=== PATIENT | male | born 1965 | race African-American/Black ===

== ENCOUNTER 2021-06-12 16:54 | Inpatient (IN) | payer MEDICAID ==
[~2021-06-12] VITALS: Ht 175.3 cm; Wt 71.7 kg
[2021-06-12] MEDS ORDERED: SODIUM CHLORIDE 0.9% 1,000 ML IV ONE (23:30)
[2021-06-12] MEDS ORDERED: KETOROLAC 30MG/ML VIAL IV STA (23:30)
[2021-06-12] MEDS ORDERED: ONDANSETRON HCL 4MG/2ML INJ IV STA (23:30)
[2021-06-12] MEDS ORDERED: FAMOTIDINE 20MG/2ML VIAL IV ONE (23:30)
[2021-06-12] MEDS ORDERED: MAGNESIUM/ALUMINUM HYDROXIDE/SIMETHICONE 30ML UDC PO STA (23:30)
[2021-06-13 00:13] LABS: CLARITY URINE CLOUDY (CLEAR); COLOR URINE DARK YELLOW (YELLOW); KETONES URINE 3+ (NEGATIVE); LEUKOCYTE ESTERASE URINE 2+ (NEGATIVE); NITRITE URINE NEGATIVE (NEGATIVE); OCCULT BLOOD URINE NEGATIVE (NEGATIVE); PH URINE 5.5 (4.5-8.0); PROTEIN URINE 1+ (NEGATIVE); SPECIFIC GRAVITY URINE 1.027 (1.005-1.030)
[2021-06-13 00:27] LABS: BASOPHILS % 0.6 % (0.0-2.0); EOSINOPHILS % 0.2 % (0.0-5.0); HEMATOCRIT. 54.5 % (42.0-52.0); HEMOGLOBIN. 18.4 g/dL (14.0-18.0); LYMPHOCYTES % 22.3 % (20.0-50.0); MEAN CORPUSCULAR HEMOGLOBIN 33.3 pg (28.0-32.0); MEAN CORPUSCULAR VOLUME 98.8 fL (80.0-94.0); MEAN PLATELET VOLUME 7.9 fl (7.4-10.4); MONOCYTES % 6.6 % (2.0-8.0); NEUTROPHILS % 70.3 % (40.0-76.0); PLATELET 285 x1000/uL (130-400); RED BLOOD CELL COUNT 5.52 mill/uL (4.7-6.1); RED CELL DISTRIBUTION WIDTH 13.4 % (11.6-14.6)
[2021-06-13 00:34] LABS: CHLORIDE 100 mEq/L (98-107)
[2021-06-13] MEDS ORDERED: ACETAMINOPHEN 650MG SUPP PR PRN (05:15)
[2021-06-13] MEDS ORDERED: ONDANSETRON HCL 4MG/2ML INJ IV PRN (05:15)
[2021-06-13] MEDS ORDERED: NALOXONE HCL 0.4 MG/ML 1ML VIAL IV PRN (05:30)
[2021-06-13] MEDS: LEVOFLOXACIN 500MG PREMIX 100 ML IV SCH (05:35)
[2021-06-13] MEDS: DEXT 5%/0.45% NACL 1000ML 1,000 ML IV SCH ×2 (05:36→17:40)
[2021-06-13] MEDS: HYDROMORPHONE HCL/PF 2MG/ML CPJ IV PRN ×2 (13:57→21:48)
[2021-06-13 16:00] VITALS: BP 135/89
[2021-06-13 16:34] VITALS: BP 135/89
[2021-06-13 20:00] VITALS: BP 114/75
[2021-06-14] VITALS: BP 119/77
[2021-06-14 04:00] VITALS: BP 128/89
[2021-06-14] MEDS: LEVOFLOXACIN 500MG PREMIX 100 ML IV SCH (05:07)
[2021-06-14 05:44] LABS: BASOPHILS % 0.7 % (0.0-2.0); EOSINOPHILS % 1.1 % (0.0-5.0); HEMATOCRIT. 45.7 % (42.0-52.0); HEMOGLOBIN. 15.5 g/dL (14.0-18.0); LYMPHOCYTES % 45.8 % (20.0-50.0); MEAN CORPUSCULAR HEMOGLOBIN 33.3 pg (28.0-32.0); MEAN CORPUSCULAR VOLUME 98.5 fL (80.0-94.0); MEAN PLATELET VOLUME 8.3 fl (7.4-10.4); MONOCYTES % 8.9 % (2.0-8.0); NEUTROPHILS % 43.5 % (40.0-76.0); PLATELET 244 x1000/uL (130-400); RED BLOOD CELL COUNT 4.64 mill/uL (4.7-6.1); RED CELL DISTRIBUTION WIDTH 13.4 % (11.6-14.6)
[2021-06-14 05:48] LABS: CHLORIDE 107 mEq/L (98-107)
[2021-06-14] MEDS: HYDROMORPHONE HCL/PF 2MG/ML CPJ IV PRN ×3 (06:11→17:47)
[2021-06-14 08:00] VITALS: BP 110/80
[2021-06-14] MEDS: DEXT 5%/0.45% NACL 1000ML 1,000 ML IV SCH ×2 (08:32→21:15)
[2021-06-14] MEDS ORDERED: DIATR MEGLU/DIATRIZOATE SOLN 30ML PO SCH (11:15)
[2021-06-14 12:00] VITALS: BP 118/75
[2021-06-14] MEDS ORDERED: KCL 20MEQ/100ML PREMIX 100 ML IV SCH (13:00)
[2021-06-14 16:00] VITALS: BP 138/81
[2021-06-14 20:00] VITALS: BP 107/71
[2021-06-15] VITALS (7 sets, daily range): BP systolic 107–136; BP diastolic 55–81
[2021-06-15] MEDS: HYDROMORPHONE HCL/PF 2MG/ML CPJ IV PRN ×6 (00:27→22:40)
[2021-06-15 05:13] LABS: BASOPHILS % 0.7 % (0.0-2.0); EOSINOPHILS % 0.9 % (0.0-5.0); HEMATOCRIT. 44.7 % (42.0-52.0); LYMPHOCYTES % 37.1 % (20.0-50.0); MEAN CORPUSCULAR HEMOGLOBIN 33.2 pg (28.0-32.0); MEAN CORPUSCULAR VOLUME 98.6 fL (80.0-94.0); MEAN PLATELET VOLUME 8.3 fl (7.4-10.4); MONOCYTES % 10.4 % (2.0-8.0); NEUTROPHILS % 50.9 % (40.0-76.0); PLATELET 259 x1000/uL (130-400); RED BLOOD CELL COUNT 4.53 mill/uL (4.7-6.1); RED CELL DISTRIBUTION WIDTH 13.4 % (11.6-14.6)
[2021-06-15 05:15] LABS: CHLORIDE 105 mEq/L (98-107)
[2021-06-15] MEDS: LEVOFLOXACIN 500MG PREMIX 100 ML IV SCH (05:32)
[2021-06-15] MEDS: DEXT 5%/0.45% NACL 1000ML 1,000 ML IV SCH ×2 (09:44→23:55)
[2021-06-16] VITALS: BP 124/76
[2021-06-16] MEDS: HYDROMORPHONE HCL/PF 2MG/ML CPJ IV PRN (03:59)
[2021-06-16 04:00] VITALS: BP 121/77
[2021-06-16] MEDS: LEVOFLOXACIN 500MG PREMIX 100 ML IV SCH (05:08)
[2021-06-16 07:06] LABS: BASOPHILS % 0.5 % (0.0-2.0); EOSINOPHILS % 1.2 % (0.0-5.0); HEMATOCRIT. 47.6 % (42.0-52.0); HEMOGLOBIN. 15.8 g/dL (14.0-18.0); LYMPHOCYTES % 35.6 % (20.0-50.0); MEAN CORPUSCULAR HEMOGLOBIN 33.3 pg (28.0-32.0); MEAN CORPUSCULAR VOLUME 100.2 fL (80.0-94.0); MEAN PLATELET VOLUME 8.2 fl (7.4-10.4); MONOCYTES % 7.9 % (2.0-8.0); NEUTROPHILS % 54.8 % (40.0-76.0); PLATELET 256 x1000/uL (130-400); RED BLOOD CELL COUNT 4.75 mill/uL (4.7-6.1); RED CELL DISTRIBUTION WIDTH 13.4 % (11.6-14.6)
[2021-06-16 07:21] LABS: CHLORIDE 104 mEq/L (98-107)
== END 2021-06-16 10:35 | disposition home or self-care (01) | DRG 247 ==
LOC: ER 16:54 → MICUSO 06-13 02:56 → 6EST 06-13 16:21
PROVIDERS: ADMIT Hospitalist; ATTEND Hospitalist
DX: K56.1 Intussusception (principal); Z20.822 Contact with and (suspected) exposure to COVID-19; Z87.828 Personal history of other (healed) physical injury and trauma
CPT/HCPCS: 36415; 71045; 74176; 80048; 80053; 80076; 81003; 82248; 85025; 87426; 93005; 99285; C1893; J1170; J1885; J1956; J2405; J3480; J3490; J7030; Q9963